=== PATIENT | female | born 1970 | race Caucasian/White ===

== ENCOUNTER 2024-12-25 21:24 | Emergency (ER) | payer SELFPAY ==
[~2024-12-25] VITALS: Ht 160 cm; Wt 84.0 kg
[2024-12-25 21:47] VITALS: O2SAT 100
[2024-12-26] MEDS: FLUORESCEIN SODIUM 1MG/STRIP RIGHTEYE ONE (01:15)
[2024-12-26] MEDS ORDERED: METHYLPREDNISOLONE 40MG/ML INJ IV ONE (01:15)
[2024-12-26] MEDS ORDERED: MANNITOL 20% (20GM/100ML) BAG 500ML PREMIX IV ONE (01:30)
[2024-12-26] MEDS: MANNITOL 20% 250 ML IV NR (02:00)
[2024-12-26] MEDS: HYDROCODONE/ACETAMINOPHEN 10/325MG TABLET PO NR (02:02)
[2024-12-26] MEDS: METHYLPREDNISOLONE SOD SUCC 125MG/2ML (ACT-O-VIAL) IV NR (02:38)
[2024-12-26] MEDS: ACETAZOLAMIDE SODIUM 500MG/VIAL IV ONE (02:49)
[2024-12-26] MEDS: TETRACAINE 0.5% OPHTH DROPS 4ML RIGHTEYE NR (03:04)
[2024-12-26] MEDS: TIMOLOL MALEATE 0.5% OPHTH DROPS 5ML RIGHTEYE SCH (03:06)
[2024-12-26 09:49] VITALS: BP 118/73; PULSE 68; RESP 14; TEMP 36.7; O2SAT 100
== END 2024-12-26 10:11 | disposition short-term general hospital (02) ==
LOC: ER 21:24
DX: H05.231 Hemorrhage of right orbit (principal); Y08.89XA Assault by other specified means, initial encounter; Y93.89 Activity, other specified; Y92.89 Other specified places as the place of occurrence of the external cause; Y99.8 Other external cause status
CPT/HCPCS: 70450; 70486; 99291; 96374; 96375; J2919; J1120; Z7610 ×2